=== PATIENT | female | born 1965 | race African-American/Black ===

== ENCOUNTER → 2017-02-16 | Outpatient (CLI) | payer BC | LOC: MC.RAD 09:00 | DX: Z12.31 Encounter for screening mammogram for malignant neoplasm of breast (principal) ==

== ENCOUNTER → 2018-03-04 | Outpatient (CLI) | payer BC | LOC: MC.RAD 14:23 | DX: Z12.31 Encounter for screening mammogram for malignant neoplasm of breast (principal) ==

== ENCOUNTER 2018-09-13 10:15 | Emergency (ER) | payer BC ==
[~2018-09-13] VITALS: Ht 165.1 cm; Wt 90.9 kg
[2018-09-13 10:24] VITALS: TEMP 98.7
[2018-09-13 10:53] LABS: BASO % 0.9 % (0.0-2.0); EOS # 0.2 (0.0-0.7); EOS % 4.5 % (0-4.0); GRAN # 2.6 (1.4-6.5); GRAN % 58.8 % (42.2-75.2); HEMATOCRIT 44.1 % (37.0-47.0); LYMPH # 1.1 (1.2-3.4); LYMPH % 25.4 % (20.0-51.0); MEAN CELL VOLUME 88 fl (80.0-100.0); MEAN CORPUSCULAR HEMOGLOBIN 28 pg (27.0-31.0); MEAN CORPUSCULAR HGB CONC 32 g/dl (33.0-37.0); MONO # 0.5 (0.1-0.6); MONO % 10.2 % (1.7-9.3); PLATELET COUNT 252 K/mm3 (130-400); RED BLOOD COUNT 5.02 M/mm3 (4.10-5.30)
[2018-09-13 11:15] LABS: ALANINE AMINOTRANSFERASE 16 U/L (9-52); ALBUMIN 4.2 gm/dL (3.5-5.0); ALKALINE PHOSPHATASE 52 U/L (50-136); ANION GAP 8 mmol/L (7-16); AST,SGOT 38 U/L (15-37); BILIRUBIN,TOTAL 0.5 mg/dL (0.0-1.0); BLOOD UREA NITROGEN 14 mg/dL (7-17); CALCIUM 9.6 mg/dL (8.4-10.2); CARBON DIOXIDE 26 mmol/L (22-30); CHLORIDE 103 mmol/L (98-107); CREATININE, serum 0.96 mg/dL (0.52-1.25); GLUCOSE 93 mg/dL (74-106); LIPASE 73 U/L (23-300); SODIUM 138 mmol/L (137-145); TOTAL PROTEIN 7.6 gm/dL (6.4-8.2)
[2018-09-13] MEDS ORDERED: HCTZ12.5TAB PO (11:15)
[2018-09-13] MEDS ORDERED: SYNTHROID 0.0.025 MG PO (11:15)
[2018-09-13] MEDS ORDERED: RIOMET500 MG/5 M (11:15)
[2018-09-13 11:16] LABS: C-REACTIVE PROTEIN < 0.5 mg/dL (0.0-0.9)
[2018-09-13] MEDS ORDERED: ALDACTONE50 MG PO (11:16)
[2018-09-13 11:26] LABS: TROPONIN-I < 0.012 ng/mL (0.000-0.035)
[2018-09-13] MEDS ORDERED: PHENERGAN 25 TA25 MG PO (15:43)
[2018-09-13] MEDS ORDERED: FIORICET 325 MG1 TA1 PO (15:43)
[2018-09-13 16:22] VITALS: BP 159/96; PULSE 62
== END 2018-09-13 16:20 | disposition home or self-care (01) ==
LOC: COL.ER 10:15
PROVIDERS: Emergency Medicine
DX: R51 Headache (principal); I10 Essential (primary) hypertension
CPT/HCPCS: J1170; J1885; J2550; J3010; J7030

== ENCOUNTER → 2019-04-17 | Outpatient (CLI) | payer BC ==
[~2019-04-17] MED LIST: ALDACTONE50 MG PO; FIORICET 325 MG1 TA1 PO; HCTZ12.5TAB PO; PHENERGAN 25 TA25 MG PO; RIOMET500 MG/5 M; SYNTHROID 0.0.025 MG PO
== END ==
LOC: MC.RAD 11:15
DX: Z12.31 Encounter for screening mammogram for malignant neoplasm of breast (principal)

== ENCOUNTER 2020-02-15 10:43 | Emergency (ER) | payer BC ==
[~2020-02-15] VITALS: Ht 165.1 cm; Wt 90.9 kg
[2020-02-15 10:50] VITALS: BP 145/100; TEMP 96.2
[2020-02-15] MEDS ORDERED: NORVASC 5MG5 MG/TAB PO (11:24)
[2020-02-15 12:42] VITALS: PULSE 84
[2020-02-15] MEDS ORDERED: SINGULAIR 110 MG/TAB PO (12:46)
[2020-02-15] MEDS ORDERED: IPRATROPIUM BROM3 M1 IH (12:46)
== END 2020-02-15 13:10 | disposition home or self-care (01) ==
LOC: COL.ER 10:43
DX: J45.901 Unspecified asthma with (acute) exacerbation (principal); I10 Essential (primary) hypertension; E03.9 Hypothyroidism, unspecified; Z20.828 Contact with and (suspected) exposure to other viral communicable diseases; Z79.890 Hormone replacement therapy; Z79.84 Long term (current) use of oral hypoglycemic drugs
CPT/HCPCS: A4614

== ENCOUNTER → 2020-04-19 | Outpatient (CLI) | payer BC ==
[~2020-04-19] MED LIST changes: +IPRATROPIUM BROM3 M1 IH; +NORVASC 5MG5 MG/TAB PO; +SINGULAIR 110 MG/TAB PO
== END ==
LOC: MC.RAD 09:15
DX: Z12.31 Encounter for screening mammogram for malignant neoplasm of breast (principal)

== ENCOUNTER → 2021-05-15 | Outpatient (CLI) | payer BC | LOC: MC.RAD 08:45 | DX: Z12.31 Encounter for screening mammogram for malignant neoplasm of breast (principal) ==

== ENCOUNTER → 2022-09-10 | Outpatient (CLI) | payer BC | LOC: MC.RAD 08:25 | DX: Z12.31 Encounter for screening mammogram for malignant neoplasm of breast (principal) ==

== ENCOUNTER 2022-11-02 09:51 | Emergency (ER) | payer BC ==
[~2022-11-02] VITALS: Ht 167.6 cm; Wt 95.0 kg
[2022-11-02 10:05] VITALS: TEMP 98.4
[2022-11-02 10:25] LABS: COLLECTION METHOD CLEAN CATCH
[2022-11-02 10:46] LABS: ALBUMIN 4.1 gm/dL (3.5-5.0); BILIRUBIN,TOTAL 0.6 mg/dL (0.2-1.2); C-REACTIVE PROTEIN 4.26 mg/dL (0.00-0.50); CALCIUM 9.5 mg/dL (8.4-10.2); CREATININE, serum 1.05 mg/dL (0.57-1.11); POTASSIUM 3.8 mmol/L (3.5-4.5)
[2022-11-02 10:47] LABS: BASO # 0.1 K/mm3 (0.0-0.2); EOS # 0.3 K/mm3 (0.0-0.7); GRAN # 3.8 K/mm3 (1.4-6.5); GRAN % 59.8 % (42.2-75.2); HEMATOCRIT 46.9 % (37.0-47.0); HEMOGLOBIN 14.9 g/dl (12.5-16.0); LYMPH # 1.5 K/mm3 (1.2-3.4); LYMPH % 24.2 % (20.0-51.0); MEAN CELL VOLUME 87 fl (80.0-100.0); MEAN CORPUSCULAR HEMOGLOBIN 28 pg (27-31); MEAN CORPUSCULAR HGB CONC 32 g/dl (33.0-37.0); MEAN PLATELET VOLUME 10.1 fl (7.4-10.4); MONO # 0.7 K/mm3 (0.1-0.6); MONO % 10.8 % (1.7-9.3); MUCOUS Present (NOT PRESENT); PLATELET COUNT 298 K/mm3 (130-400); REDCELL DISTRIBUTION WIDTH-CV 15.5 % (11.5-14.5); SQUAMOUS EPITHELIAL 0-2 /hpf (0-10); URINE BACTERIA None Seen /hpf (NONE SEEN); URINE RBC 0-2 /hpf (0-2)
[2022-11-02 10:50] LABS: PH 5.5 (5.0-8.5); URINE APPEARANCE Clear (CLEAR/HAZY); URINE BLOOD Negative (NEGATIVE); URINE COLOR Yellow (YELLOW); URINE GLUCOSE Negative (NEGATIVE); URINE KETONE Negative (NEGATIVE); URINE NITRATE Negative (NEGATIVE); URINE PROTEIN(semi-quant) 1+ (NEGATIVE); URINE UROBILINOGEN 0.2 E.U/dL (0.2-1.0)
[2022-11-02] MEDS ORDERED: NORCO 325 MG-51 TAB PO (12:48)
[2022-11-02] MEDS ORDERED: AMOXICILLIN 8751 TAB PO (12:48)
[2022-11-02 12:49] VITALS: BP 148/104; PULSE 68
== END 2022-11-02 12:51 | disposition home or self-care (01) ==
LOC: COL.ER 09:51
PROVIDERS: Nurse Practitioner
DX: K57.92 Diverticulitis of intestine, part unspecified, without perforation or abscess without bleeding (principal)
CPT/HCPCS: J7030; Q9967

== ENCOUNTER → 2023-09-10 | Outpatient (CLI) | payer BC ==
[~2023-09-10] MED LIST changes: +AMOXICILLIN 8751 TAB PO; +NORCO 325 MG-51 TAB PO
== END ==
LOC: MC.RAD 09:00
DX: N64.4 Mastodynia (principal)